=== PATIENT | male | born 1965 | race American Indian/Alaskan Native ===

== ENCOUNTER 2019-08-30 20:07 | Emergency (ER) | payer MEDICARE, MEDICAID ==
[2019-08-30] MEDS ORDERED: Ondansetron 4 MG Tab.DIS PO ONE (21:03)
--- NOTE | 2019-08-30 21:03 | EDM.PDOC ---
ED HPI GENERAL MEDICAL PROBLEM - General Chief Complaint: Abdominal Pain Stated Complaint: PAIN, BLOATING Time Seen by Provider: 08/30/19 20:40 Source of Information: Reports: Patient History Limitations: Reports: No Limitations - History of Present Illness INITIAL COMMENTS - FREE TEXT/NARRATIVE: 54-year-old male on peritoneal dialysis for the past year, has had increased pain and bloating after dialysis for the past couple of weeks. He was seen at his local clinic 3 days ago and evaluated, peritoneal fluid was tested for infection and an x-ray showed no bowel obstruction. They were going to send him to [facility] for more work-up including abdominal ultrasound and CT scan but he refused because he does not like that hospital. He is also refusing to go to [place]. He came down here because we thought we had dialysis or at least could get him a ride to [place]. He has been afebrile, moderate nausea but no vomiting, his main complaint is right-sided abdominal pain especially after dialysis. No fevers or chills. He had a few oxycodone left from a past surgery that helped, nausea medicine also helps. Onset: Gradual Duration: Week(s): (2 to 3 weeks) Location: Reports: Abdomen (Especially right-sided fullness after peritoneal dialysis) Associated Symptoms: Reports: Malaise. Denies: Chest Pain, Cough, Fever/Chills , Nausea/Vomiting, Shortness of Breath, Weakness - Related Data Allergies Allergy/AdvReac Type Severity Reaction Status Date / Time No Known Allergies Allergy Verified 08/30/19 20:25 Home Meds: Home Meds Aspirin 1 tab PO DAILY 08/30/19 [History] Carvedilol [Coreg] 1.5 tab PO BID 08/30/19 [History] Insulin NPH Human Isophane [Novolin N Flexpen] 1 injection SQ TID 08/30/19 [ History] Isosorbide Mononitrate [Imdur] 1 tab PO DAILY 08/30/19 [History] Levothyroxine Sodium [Levo-T] 1 tab PO DAILY 08/30/19 [History] Sevelamer Carbonate 2 tab PO QID 08/30/19 [History] atorvaSTATin [Lipitor] 1 tab PO DAILY 08/30/19 [History] Past Medical History Cardiovascular History: Reports: High Cholesterol, Hypertension Respiratory History: Reports: Asthma Musculoskeletal History: Reports: Osteoporosis Neurological History: Reports: Neuropathy, Diabetic, Neuropathy, Peripheral Endocrine/Metabolic History: Reports: Diabetes, Type II - Past Surgical History Cardiovascular Surgical History: Reports: Coronary Artery Stent GI Surgical History: Reports: Cholecystectomy, Other (See Below) Other GI Surgeries/Procedures: PT DIALYSIS Musculoskeletal Surgical History: Reports: Arthroscopic Knee Social & Family History - Tobacco Use Smoking Status *Q: Never Smoker - Recreational Drug Use Recreational Drug Type: Reports: Other (see below) Other Recreational Drug Type: CBD OIL ED ROS GENERAL - Review of Systems Review Of Systems: See Below Constitutional: Reports: Malaise. Denies: Fever, Chills HEENT: Reports: No Symptoms Respiratory: Denies: Shortness of Breath Cardiovascular: Denies: Chest Pain GI/Abdominal: Reports: Abdominal Pain, Distension (Feeling of bloating and distention, even after peritoneal dialysis) Skin: Reports: No Symptoms Neurological: Denies: Headache, Syncope, Weakness ED EXAM, GI/ABD - Physical Exam Exam: See Below Exam Limited By: No Limitations General Appearance: Alert, No Apparent Distress Eyes: Bilateral: Normal Appearance Head: Atraumatic Respiratory/Chest: No Respiratory Distress, Lungs Clear Cardiovascular: Regular Rate, Rhythm GI/Abdominal Exam: Normal Bowel Sounds, Other (He does have a peritoneal) Extremities: Other (Just a trace of lower extremity edema) Course - Vital Signs Last Recorded V/S: Last Vital Signs Temp 96.8 F L 08/30/19 20:41 Pulse 80 08/30/19 20:41 Resp 14 08/30/19 20:41 BP 134/67 08/30/19 20:41 Pulse Ox 96 08/30/19 20:41 - Orders/Labs/Meds Meds: Medications Discontinued Medications Generic Name Dose Route Start Last Admin Trade Name Freq PRN Reason Stop Dose Admin Ondansetron HCl 4 mg 08/30/19 21:03 08/30/19 21:16 Zofran Odt PO 08/30/19 21:04 4 mg ONETIME ONE Administration Oxycodone/Acetaminophen 1 tab 08/30/19 21:43 08/30/19 21:48 Percocet 325-10 Mg PO 1 tab ONETIME PRN Administration Abdominal Pain - Re-Assessments/Exams Free Text/Narrative Re-Assessment/Exam: 08/30/19 22:05 CT of abdomen and pelvis was obtained that showed a small amount of intra- abdominal free air, and mild diverticulitis of the ascending colon. The free air possibly could be from the perforation from diverticulitis, more likely from the peritoneal dialysis. The patient does not appear to clinically have a perforated bowel with mild pain, no fever, and no peritonitis found on his peritoneal test 2 days ago. I advised the patient to be admitted in [place] where they have dialysis where he can receive IV antibiotics and observation but he refused, he wanted to go to [place]. He will be placed on oral Levaquin 500 mg daily, given 10 doses of Percocet for extra pain control and 5 doses of Zofran. Also a copy of his CT scan on a disc and the report were also given to the patient. It would be reasonable to try the course of antibiotics and if improving he likely has contained diverticulitis without perforation but if increased pain or fever he needs to be seen immediately and he understands. Departure - Departure Time of Disposition: 22:37 Disposition: Home, Self-Care 01 Clinical Impression: Diverticulitis large intestine Qualifiers: Diverticulitis bleeding: without bleeding Diverticulitis complication: without perforation or abscess Qualified Code(s): K57.32 - Diverticulitis of large intestine without perforation or abscess without bleeding - Discharge Information Instructions: Diverticulitis, [id number] Referrals: PCP,None [Primary Care Provider] - Forms: ED Department Discharge Care Plan Goals: Take 1 dose of antibiotic daily starting tonight, then each morning for at least 7 days. Use nausea and pain medicine as needed and drink lots of water. Recheck at the hospital if worsening such as increased fever or pain despite treatment. Sepsis Event Note - Evaluation Sepsis Screening Result: No Definite Risk - Focused Exam Vital Signs: Vital Signs Temp Pulse Resp BP Pulse Ox 08/30/19 20:41 96.8 F L 80 14 134/67 96 Date Exam was Performed: 08/30/19 Time Exam was Performed: 22:43
[2019-08-30] MEDS ORDERED: Acetaminophen/oxyCODONE 325-10 MG Tab PO PRN (21:43)
--- NOTE | 2019-08-30 21:51 | CRLCT ---
INDICATION: Abdominal pain. Bloating. TECHNIQUE: Noncontrast CT scan of the abdomen and pelvis. FINDINGS: The lung bases are unremarkable. No focal abnormalities identified in the visualized portions of the liver, spleen, pancreas, adrenal glands, and kidneys. No hydronephrosis. No uroliths. The peritoneal dialysis catheter in the right side of the abdomen. Colonic diverticulosis. Focal inflamed diverticulum extending off the upper portion of the ascending colon. The remainder of the GI tract is incompletely distended but shows no gross abnormalities. The stomach and GE junction are not well assessed. Normal appendix. No retroperitoneal, pelvic sidewall, or mesenteric adenopathy. Atherosclerotic vascular calcifications. Small to moderate amount of free intraperitoneal air. IMPRESSION: 1. Diverticulitis involving the upper portion the ascending colon. Recommend direct visualization of this region with colonoscopy once the patient`s symptoms have resolved to exclude the possibility of an underlying neoplastic process. 2. Small to moderate amount of free intraperitoneal air. This may be due to the peritoneal dialysis but could also be due to perforation of the diverticulitis. Dictated by Papito Maciel MD @ 08/30/2019 9:50:46 PM Please note that all CT scans at this facility use dose modulation, iterative reconstruction, and/or weight-based dosing when appropriate to reduce radiation dose to as low as reasonably achievable. Dictated by: Papito Maciel MD @ 08/30/2019 21:50:53 (Electronically Signed)
== END 2019-08-30 22:37 | disposition home or self-care (01) ==
LOC: JP.ED 20:07
DX: K57.32 Diverticulitis of large intestine without perforation or abscess without bleeding (principal); E78.00 Pure hypercholesterolemia, unspecified; I10 Essential (primary) hypertension; J45.909 Unspecified asthma, uncomplicated; E11.42 Type 2 diabetes mellitus with diabetic polyneuropathy; Z79.82 Long term (current) use of aspirin; Z79.899 Other long term (current) drug therapy; Z79.4 Long term (current) use of insulin; Z90.49 Acquired absence of other specified parts of digestive tract
CPT/HCPCS: 74176; 99284; A9270